=== PATIENT | female | born 1985 | race African-American/Black ===

== ENCOUNTER 2018-12-20 08:19 | Emergency (ER) | payer MEDICARE, OTHER ==
[~2018-12-20] VITALS: Ht 165.1 cm; Wt 86.8 kg
[2018-12-20] MEDS ORDERED: MIRE1IUD IU (08:28)
[2018-12-20] MEDS ORDERED: ONDANSETRON 4MG/2ML VIAL (J2405) IV ONE (08:45)
[2018-12-20] MEDS ORDERED: KETOROLAC 30 MG/ML VIAL (J1885) IV ONE (08:45)
[2018-12-20] MEDS ORDERED: NS 1,000 ML IV ONE (08:45)
[2018-12-20 09:08] LABS: BASO % 0.4 % (0.0-1.0); EOS # 0.1 10^3/uL (0.0-0.50); EOS % 1.5 % (0.0-3.0); HEMATOCRIT 41.3 % (36.0-47.0); HEMOGLOBIN 13.1 g/dl (12.0-15.5); LYMPH # 1.6 10^3/uL (1.5-4.5); LYMPH % 17.4 % (24.0-44.0); MEAN CORPUSCULAR HEMOGLOBIN 27.7 pg (27.0-33.0); MEAN CORPUSCULAR HGB CONC 31.7 g/dl (32.0-36.5); MEAN CORPUSCULAR VOLUME 87.3 fl (80.0-96.0); MONO # 0.4 10^3/uL (0.0-0.8); MONO % 4.4 % (0.0-5.0); NEUTROPHILS # 7.1 10^3/uL (1.8-7.7); PLATELET COUNT, AUTOMATED 298 10^3/uL (150-450); RED BLOOD COUNT 4.73 10^6/uL (4.00-5.40); WHITE BLOOD COUNT 9.4 10^3/uL (4.0-10.0)
[2018-12-20 09:35] LABS: ALBUMIN 3.8 GM/DL (3.2-5.2); BILIRUBIN,DIRECT 0.2 MG/DL (0.0-0.2); BILIRUBIN,TOTAL 0.7 MG/DL (0.2-1.0); TOTAL PROTEIN 7.1 GM/DL (6.4-8.2)
[2018-12-20] MEDS ORDERED: ISOVUE-370 76% 100ML VIAL (Q9967) As Ordered ONE (09:36)
--- NOTE | 2018-12-20 10:11 | REP ---
CT of the abdomen and pelvis with IV contrast, without bowel contrast: There are no comparisons. The visualized lung motley are unremarkable. The hepatic parenchyma, gallbladder, pancreas, spleen, adrenals, kidneys and abdominal aorta are unremarkable. There is no periaortic adenopathy or mass. There is no bowel distension or obstruction. The mesentery is unremarkable. There is no ascites. Pelvis: The cecum is on a redundant mesentery and is located over the midline. The appendix is unremarkable. There is an IUD within the endometrial canal of the uterus. The uterus and adnexa are otherwise unremarkable. The bladder is unremarkable. There is no pelvic ascites or adenopathy. Impression: There is an IUD within the uterine endometrial canal. The uterus and adnexa are otherwise unremarkable. The gallbladder and appendix are unremarkable. Otherwise, negative CT of the abdomen and pelvis. Electronically Signed by Tello Guadalupe MD 12/20/2018 10:03 A
[2018-12-20] MEDS ORDERED: ZOFR8TAB24 PO ×3 (10:56→11:18)
[2018-12-20 11:11] VITALS: BP 110/63
--- NOTE | 2018-12-20 14:06 | REP ---
Pelvic ultrasound including transabdominal, endovaginal and Doppler ultrasound assessment: The bladder is adequately distended. The uterus is anteverted and normal size measuring 8.3 by 4.0 x 5.2 cm. The endometrium is not thickened measuring 1.8 mm. There is an IUD within the endometrial canal. The myometrium is unremarkable. The ovaries are normal size. Right ovary measures 3.2 x 128 x 1.9 cm. Left ovary measures 2.4 x 1.9 x 2.3 cm. There is no dominant ovarian mass or cyst. There is vascular flow in both ovaries. The Doppler resistive index of the parenchymal artery in the right ovary is 0.50 and the left ovary 0.49. There is no pelvic free fluid. Impression: IUD within the endometrial canal. Otherwise, essentially negative pelvic ultrasound. Electronically Signed by Tello Guadalupe MD 12/20/2018 01:57 P
== END 2018-12-20 11:20 | disposition home or self-care (01) ==
LOC: M ED 08:19
DX: R10.2 Pelvic and perineal pain (principal); R11.2 Nausea with vomiting, unspecified; R00.0 Tachycardia, unspecified; R30.0 Dysuria; K21.9 Gastro-esophageal reflux disease without esophagitis; Z87.440 Personal history of urinary (tract) infections; Z97.5 Presence of (intrauterine) contraceptive device
CPT/HCPCS: 74177; 76376; 76830; 76856; 80047; 80076; 81001; 83605; 83690; 84702; 85025; 93976; 96361; 96374; 96375; 99284; J1885; J2405; Q9967

== ENCOUNTER → 2019-06-02 | Outpatient (CLI) | payer MEDICARE, OTHER ==
[~2019-06-02] MED LIST: MIRE1IUD IU; ZOFR8TAB24 PO
--- NOTE | 2019-06-02 15:09 | REP ---
Ribs for views: There is a fracture of the twelfth rib. No other fractures are identified. There is no pneumothorax, hemothorax or pulmonary contusion in the right hemithorax. Impression: Right 12th rib fracture. Electronically Signed by Tello Guadalupe MD 06/02/2019 03:00 P
--- NOTE | 2019-06-02 15:12 | REP ---
Lumbar spine five views: There are no comparisons. Vertebral body heights, interspacing alignment are normal. There are is mild degenerative disc disease at L5 S1. The pedicles and facets are unremarkable. The sacroiliac articulations are unremarkable. There is a fracture of the right 12th rib. There is an IUD in the pelvis. Impression: Negative lumbar spine. Right 12th rib fracture. IUD. Electronically Signed by Tello Guadalupe MD 06/02/2019 03:03 P
== END ==
LOC: M LRY 14:27
PROVIDERS: ATTEND Physician Assistant
DX: S22.31XA Fracture of one rib, right side, initial encounter for closed fracture (principal); W19.XXXA Unspecified fall, initial encounter; Y92.9 Unspecified place or not applicable; M51.37 Other intervertebral disc degeneration, lumbosacral region; M54.5 Low back pain; Z97.5 Presence of (intrauterine) contraceptive device
CPT/HCPCS: 71101; 72110; G0463

== ENCOUNTER → 2020-10-15 | Outpatient (CLI) | payer OTHER ==
--- NOTE | 2020-10-15 18:23 | REPVR ---
PROCEDURE INFORMATION: Exam: MR Head Without Contrast Exam date and time: 10/15/2020 4:47 PM Age: 35 years old Clinical indication: Pain; Headache; Patient HX: Tension h/as TECHNIQUE: Imaging protocol: MR of the head without contrast. COMPARISON: No relevant prior studies available. FINDINGS: Brain: There is no acute intracranial hemorrhage, cerebral edema, or midline shift. No restricted diffusion is present to suggest acute infarction. A small area of probable chronic hemosiderin staining or mineralization is noted in the subcortical white matter of the lateral left parietal lobe just above the sylvian fissure. Cerebral ventricles: No hydrocephalus. Bones/joints: Unremarkable. Paranasal sinuses: Normal as visualized. No acute sinusitis. Mastoid air cells: Normal as visualized. No mastoid effusion. Orbital cavity: Unremarkable. Soft tissues: Unremarkable. IMPRESSION: No acute findings. Electronically signed by: Bebeto Desir On 10/15/2020 18:23:01 PM
== END ==
LOC: M RAD 15:40
PROVIDERS: ATTEND Nurse Practitioner Family
DX: R51.9 Headache, unspecified (principal)